=== PATIENT | male | born 1970 | race Caucasian/White ===

== ENCOUNTER 2021-12-09 12:48 | Outpatient (RCR) | payer OTHER, SELFPAY ==
--- NOTE | ~2021-12-09 | XR_ITS ---
EXAMINATION: XR FOOT, LEFT CLINICAL INFORMATION: Nonhealing wound. Osteoarthritis. COMPARISON: None TECHNIQUE: AP, lateral, and oblique views of the left foot. FINDINGS: There is no visible acute fracture, dislocation or subluxation seen. There is a small calcaneal heel enthesophyte. Ankle mortise and subtalar joints are normal. The soft tissues are normal. XR/XR foot LT 2V IMPRESSION: Small calcaneal heel enthesophyte. No visible acute fracture or dislocation seen.
[2022-04-01 10:10] LABS: MANUAL DIFF FLAG NO
[2022-04-01 10:51] LABS: Basophils Absolute Auto 0.1 X10*3/uL (0.0-0.2); Basophils Percent Auto 1.7 % (0-2); Eosinophils Absolute Auto 0.2 X10*3/uL (0.0-0.4); Eosinophils Percent Auto 2.7 % (0-4); Hematocrit 41.9 % (42.0-52.0); Hemoglobin 14.3 g/dl (14.0-18.0); Imm Gran Abs Auto 0.05 X10*3/uL (0.00-0.03); Imm Gran Pct Auto 0.7 % (0.0-0.4); Lymphocytes Absolute Auto 2.1 X10*3/uL (1.2-4.9); Lymphocytes Percent Auto 28.9 % (20-40); Mean Corpuscular HGB Conc 34.1 g/dl (31.0-36.0); Mean Corpuscular Hemoglobin 31.8 pg (27.0-33.0); Mean Corpuscular Volume 93.3 fL (80.0-98.0); Mean Platelet Volume 10.3 fL (9.4-12.4); Monocytes Absolute Auto 0.8 X10*3/uL (0.1-1.2); Monocytes Percent Auto 11.2 % (2-11); Neutrophils Absolute Auto 3.9 x10*3/uL (2.0-8.3); Neutrophils Percent Auto 54.8 % (45-73); Platelet Count 231 X10*3/uL (160-400); Red Blood Count 4.49 X10*6/uL (4.60-5.80); Red Cell Distribution Width 13.4 % (11.0-16.0); White Blood Count 7.2 X10*3/uL (4.8-10.8)
[2022-04-01 10:58] LABS: Estimated Average Glucose 117 mg/dL; Hemoglobin A1C 149.5817 umol/L; Hemoglobin A1c % 5.7 %
[2022-04-01 11:20] LABS: Anion Gap 17 (12-20); Blood Urea Nitrogen 15 mg/dL (9-16); C Reactive Protein 0.14 mg/dL (< or = 0.50); Calcium 10.7 mg/dL (8.4-10.2); Carbon Dioxide 28 mmol/L (22-29); Chloride 98 mmol/L (96-108); Estimated Glomerular Filt Rate > 60; Glucose Random 113 mg/dL (60-115); Potassium 4.8 mmol/L (3.3-5.1); Sodium 138 mmol/L (135-145)
[2022-04-01 11:46] LABS: Erythrocyte Sedimentation Rate 9 MM/HR (0-15)
== END 2022-04-30 12:23 | disposition home or self-care (01) ==
LOC: HO.WCC 12:48
PROVIDERS: PCP Internal Medicine; Visit Provider Physician Assistant
DX: E11.621 Type 2 diabetes mellitus with foot ulcer (principal); L97.522 Non-pressure chronic ulcer of other part of left foot with fat layer exposed; E11.40 Type 2 diabetes mellitus with diabetic neuropathy, unspecified; L84 Corns and callosities; L08.9 Local infection of the skin and subcutaneous tissue, unspecified; I10 Essential (primary) hypertension; Z87.891 Personal history of nicotine dependence
CPT/HCPCS: 11042; 11043; 15275; 36415; 73620; 80048; 83036; 84134; 85025; 85652; 86140; 99212; Q4101

== ENCOUNTER 2021-12-11 10:33 | Outpatient (REF) | payer OTHER, SELFPAY ==
[2021-12-11 11:13] LABS: MANUAL DIFF FLAG NO
[2021-12-11 11:24] LABS: Basophils Absolute Auto 0.1 X10*3/uL (0.0-0.2); Basophils Percent Auto 1.7 % (0-2); Eosinophils Absolute Auto 0.4 X10*3/uL (0.0-0.4); Eosinophils Percent Auto 5.2 % (0-4); Hemoglobin 14.2 g/dl (14.0-18.0); Imm Gran Abs Auto 0.04 X10*3/uL (0.00-0.03); Imm Gran Pct Auto 0.5 % (0.0-0.4); Lymphocytes Absolute Auto 2.1 X10*3/uL (1.2-4.9); Lymphocytes Percent Auto 28.3 % (20-40); Mean Corpuscular HGB Conc 33.8 g/dl (31.0-36.0); Mean Corpuscular Hemoglobin 33.2 pg (27.0-33.0); Mean Corpuscular Volume 98.1 fL (80.0-98.0); Monocytes Absolute Auto 0.8 X10*3/uL (0.1-1.2); Monocytes Percent Auto 10.4 % (2-11); Neutrophils Percent Auto 53.9 % (45-73); Platelet Count 224 X10*3/uL (160-400); Red Blood Count 4.28 X10*6/uL (4.60-5.80); Red Cell Distribution Width 13.2 % (11.0-16.0); White Blood Count 7.5 X10*3/uL (4.8-10.8)
[2021-12-11 11:38] LABS: Estimated Average Glucose 146 mg/dL; Hemoglobin A1c % 6.7 %
[2021-12-11 11:48] LABS: Anion Gap 14 (12-20); Blood Urea Nitrogen 20 mg/dL (9-16); C Reactive Protein 0.39 mg/dL (< or = 0.50); Calcium 9.6 mg/dL (8.4-10.2); Carbon Dioxide 28 mmol/L (22-29); Chloride 100 mmol/L (96-108); Estimated Glomerular Filt Rate > 60; Glucose Random 118 mg/dL (60-115); Potassium 4.5 mmol/L (3.3-5.1); Sodium 137 mmol/L (135-145)
[2021-12-11 12:16] LABS: Erythrocyte Sedimentation Rate 21 MM/HR (0-15)
== END 2021-12-11 10:34 | disposition home or self-care (01) ==
LOC: HO.WFDLDS 10:33
PROVIDERS: Visit Provider Physician Assistant
DX: T14.8XXD Other injury of unspecified body region, subsequent encounter (principal)
CPT/HCPCS: 36415; 80048; 83036; 84134; 85025; 85652; 86140

== ENCOUNTER 2021-12-16 08:01 | Outpatient (REF) | payer OTHER, SELFPAY ==
--- NOTE | ~2021-12-16 | MR_ITS ---
EXAMINATION: MRI WITHOUT AND WITH CONTRAST FOOT, LEFT CLINICAL INFORMATION: Nonhealing wound. COMPARISON: None TECHNIQUE: MRI without and with intravenous administration of 10 mL of Gadavist is performed on the left foot. FINDINGS: There is a shallow ulceration along the plantar/medial aspect of the great toe with underlying edema and enhancement compatible with cellulitis. No abscess. There are no marrow changes to suggest underlying osteomyelitis. There is a chronic-appearing longitudinal intra-articular fracture at the base of the 2nd metatarsal thinning through the plantar cortex with secondary severe degenerative changes of the 2nd TMT joint. The Lisfranc ligament is intact. [id number] degenerative changes elsewhere across the Lisfranc joints, as well as the 1st MTP joint. There is diffuse mild fatty atrophy of the intrinsic muscles of the foot, not uncommon in diabetic patients. No definite tendon tear. There are areas of intermediate signal thickening of the plantar fascia which may represent small plantar fibromas at the level of the TMT joints. MR/MR foot LT wo/w con IMPRESSION: Shallow ulceration of the great toe with cellulitis. No abscess or evidence of osteomyelitis. Chronic-appearing longitudinal intra-articular fracture at the base of the 2nd metatarsal. Degenerative findings as described, severe at the 2nd TMT joint.
== END 2021-12-16 08:02 | disposition home or self-care (01) ==
LOC: HO.MRI 08:01
PROVIDERS: Visit Provider Physician Assistant
DX: E11.621 Type 2 diabetes mellitus with foot ulcer (principal); L97.323 Non-pressure chronic ulcer of left ankle with necrosis of muscle
CPT/HCPCS: 73720; A9585

== ENCOUNTER 2022-05-29 13:30 | Outpatient (REF) | payer OTHER, SELFPAY ==
--- NOTE | ~2022-05-29 | MR_ITS ---
EXAMINATION: MRI FOOT WITHOUT AND WITH CONTRAST, LEFT CLINICAL INFORMATION: Great toe nonhealing wound COMPARISON: Radiographs 04/01/2022. MRI 12/16/2021. TECHNIQUE: MRI without and with intravenous administration of 10 mL of Gadavist is performed on the left FINDINGS: Small soft tissue ulceration along the plantar/medial aspect of the great toe with underlying edema/enhancement of the subcutaneous fat compatible with cellulitis. No abscess. There is no evidence of underlying osteomyelitis. Chronic, ununited intra-articular fracture at the base of the 2nd metatarsal. There are degenerative marrow changes of the midfoot and 1st MTP joint. Fatty atrophy of the intrinsic muscles of the foot. Areas of intermediate signal thickening of the plantar fascia which could represent plantar fibromas or previous injury. No significant change. MR/MR foot LT wo/w con IMPRESSION: Small soft tissue ulceration along the plantar/medial aspect of the great toe with underlying cellulitis. No abscess. No evidence of osteomyelitis.
== END 2022-05-29 13:31 | disposition home or self-care (01) ==
LOC: HO.MRI 13:30
PROVIDERS: Visit Provider Physician Assistant
DX: E11.621 Type 2 diabetes mellitus with foot ulcer (principal); L97.523 Non-pressure chronic ulcer of other part of left foot with necrosis of muscle
CPT/HCPCS: 73720; A9585

== ENCOUNTER 2022-12-05 12:41 | Outpatient (RCR) | payer OTHER, SELFPAY | END 2022-12-20 08:00 | disposition home or self-care (01) | LOC: HO.WCC 12:41 | PROVIDERS: PCP Internal Medicine; Visit Provider Physician Assistant | DX: Z09 Encounter for follow-up examination after completed treatment for conditions other than malignant neoplasm (principal); L84 Corns and callosities; E11.40 Type 2 diabetes mellitus with diabetic neuropathy, unspecified; I10 Essential (primary) hypertension; Z87.891 Personal history of nicotine dependence; Z86.31 Personal history of diabetic foot ulcer | CPT/HCPCS: 11042; 11055; 99212 ==